=== PATIENT | female | born 1970 | race Caucasian/White ===

== ENCOUNTER 2021-01-08 15:32 | Day surgery (SDCO) | payer OTHER ==
[~2021-01-08] VITALS: Ht 155 cm; Wt 53.0 kg
[~2021-01-08 15:32] MED LIST: NAPROXEN500 MG PO; VOLTAREN **OUT50 MG PO
[2021-01-08 17:52] LABS: BASOPHIL 0.2 % (0-2); EOSINOPHIL 0.8 % (0-5); HCT 37.2 % (37.0-47.0); HGB 12.6 g/dl (12.5-16.0); LYMPHOCYTE 21.9 % (15-48); MCH 28.3 pg (25.0-31.0); MCHC 33.9 g/dL (32.0-36.0); MCV 83.4 fL (78.0-100.0); MONOCYTE 5.1 % (0-12); MPV 11.9 fL (6.0-9.5); NEUTROPHIL 71.7 % (41-80); NRBC 0; PLT 190 K/uL (150-400); RBC 4.46 M/uL (4.20-5.40); RDW 12.2 % (11.5-14.0); WBC 8.9 K/uL (4.0-10.5)
[2021-01-08 18:08] LABS: BILIRUBIN NEGATIVE (NEGATIVE); BLOOD 2+ Ery/uL (NEGATIVE); CLARITY CLEAR (CLEAR); COLOR YELLOW (YELLOW); GLUCOSE (U) NORMAL (NORMAL); LEUKOCYTES NEGATIVE Leu/uL (NEGATIVE); NITRITE NEGATIVE (NEGATIVE); PROTEIN TRACE (LOW) mg/dL (NEGATIVE); SPECIFIC GRAVITY 1.025 (1.001-1.030); UROBILINOGEN 0.2 mg/dL (0.2-1.0)
[2021-01-08 18:10] LABS: BACTERIA TRACE; MUCOUS MODERATE; URINARY RBC RARE; URINARY WBC RARE
[2021-01-08 18:11] LABS: INR 1.06 (0.9-1.2); PROTHROMBIN TIME 13.1 SECONDS (11.4-13.6); PTT 30.9 SECONDS (22.2-34.7)
[2021-01-08 18:14] LABS: ALBUMIN 3.6 g/dL (3.4-5.0); BILIRUBIN - TOTAL 0.5 mg/dL (0.2-1.0); BUN/CREAT RATIO (CALC) 15.6 RATIO; C-REACTIVE PROTEIN 3.8 mg/dL (<=0.90); CREATININE 0.64 mg/dL (0.51-0.95); GLOBULIN (CALCULATION) 4.2 g/dL; POTASSIUM 3.4 mmol/L (3.5-5.1); TOTAL PROTEIN 7.8 g/dL (6.4-8.2)
[2021-01-09 06:14] LABS: BASOPHIL 0.3 % (0-2); EOSINOPHIL 1.7 % (0-5); HCT 32.4 % (37.0-47.0); LYMPHOCYTE 24.7 % (15-48); MCH 28.5 pg (25.0-31.0); MCV 83.9 fL (78.0-100.0); MONOCYTE 6.9 % (0-12); MPV 12.1 fL (6.0-9.5); NEUTROPHIL 65.9 % (41-80); NRBC 0; PLT 158 K/uL (150-400); RBC 3.86 M/uL (4.20-5.40); RDW 12.3 % (11.5-14.0); WBC 7.5 K/uL (4.0-10.5)
[2021-01-09 06:43] LABS: ALBUMIN 2.7 g/dL (3.4-5.0); BILIRUBIN - TOTAL 0.5 mg/dL (0.2-1.0); BUN/CREAT RATIO (CALC) 15.4 RATIO; CREATININE 0.65 mg/dL (0.51-0.95); GLOBULIN (CALCULATION) 3.5 g/dL; MAGNESIUM 1.7 mg/dL (1.8-2.4); PHOSPHORUS 2.2 mg/dL (2.6-4.7); POTASSIUM 3.3 mmol/L (3.5-5.1); TOTAL PROTEIN 6.2 g/dL (6.4-8.2)
--- NOTE | 2021-01-09 11:28 | NUR ---
@1264 PATIENT SIGNED CONSENT FOR SURGERY. TOWER LOADER OPERATOR WAS CALLED KANNAN [id number] WAS HER TOWER LOADER OPERATOR NUMBER.
--- NOTE | 2021-01-09 16:28 | NUR ---
01/09/21 Ms. Wilfredo Mckenzie is uninsured. She was referred to the [facility] via Dr. Valencia presenting the resources information through an interpretor.
[2021-01-09] MEDS ORDERED: NORCO 5-325 TA1 EACH PO (18:12)
[2021-01-09] MEDS ORDERED: IBUPROFEN400 MG PO (18:12)
[2021-01-09] MEDS ORDERED: ONDANSETRON ODT4 MG PO (18:12)
--- NOTE | 2021-01-09 20:54 | NUR ---
NURSE UTILIZED SUPERVISOR COMMUNICATIONS AND SIGNALS SERVICES PRIOR TO ASSSESING PT AND MEDICATION ADMINSTRATION. PT VERBALIZED UNDERSTANDING AND DENIES PAIN , INSTRUCTED ON USE OF CALL LIGHT FOR ANY NEEDS. SUPERVISOR COMMUNICATIONS AND SIGNALS ID #[id number]
--- NOTE | 2021-01-09 22:53 | NUR ---
2200: PT VOIDED 500 ML CLEAR YELLOW URINE. SPOKE WITH PT THROUGH TOW TRUCK OPERATOR ABOUT DC TONIGHT. PT STATED UNABLE TO GET PAIN RX FILLED TONIGHT. PT'S STATED HE WILL BE HERE AROUND 0700 FOR DC. 0: Geovanni GIL APRN NOTIFED PT WILL BE STAYING THE NIGHT AND DC'D EARLY AM.
--- NOTE | 2021-01-10 11:09 | NUR ---
[place] [id number] TALKED TO PATRICK. WENT OVER PT D/C ORDERS. PAPER WORK GIVEN TO PT.
== END 2021-01-10 11:31 | disposition home or self-care (01) ==
LOC: FER 15:32 → FMS 19:14
PROVIDERS: Internal Medicine; Nurse Practitioner; ADMIT Internal Medicine
DX: K80.12 Calculus of gallbladder with acute and chronic cholecystitis without obstruction (principal); U07.1 COVID-19; J12.82 Pneumonia due to coronavirus disease 2019
CPT/HCPCS: 36415; 76705; 80053; 81001; 83605; 83690; 83735; 84100; 85025; 85610; 85730; 86140; 94010; 96372; C9113; G0378; J1100; J1170; J1644; J1650; J1885; J2270; J2405; J2543; J2704; J2710; J3010; J7030; J7120; U0002

== ENCOUNTER 2021-04-26 14:05 | Emergency (ER) | payer OTHER ==
[~2021-04-26 14:05] MED LIST changes: +IBUPROFEN400 MG PO; +NORCO 5-325 TA1 EACH PO; +ONDANSETRON ODT4 MG PO
[2021-04-26 15:21] LABS: BILIRUBIN NEGATIVE (NEGATIVE); BLOOD 2+ Ery/uL (NEGATIVE); CLARITY CLEAR (CLEAR); COLOR YELLOW (YELLOW); GLUCOSE (U) NORMAL (NORMAL); LEUKOCYTES NEGATIVE Leu/uL (NEGATIVE); NITRITE NEGATIVE (NEGATIVE); PROTEIN NEGATIVE (NEGATIVE); SPECIFIC GRAVITY 1.015 (1.001-1.030); UROBILINOGEN 0.2 mg/dL (0.2-1.0)
[2021-04-26 15:30] LABS: BACTERIA TRACE; URINARY WBC RARE
[2021-04-26 17:16] LABS: BASOPHIL 0.4 % (0-2); EOSINOPHIL 1.6 % (0-5); HCT 41.3 % (37.0-47.0); HGB 13.5 g/dl (12.5-16.0); LYMPHOCYTE 16.3 % (15-48); MCH 27.1 pg (25.0-31.0); MCHC 32.7 g/dL (32.0-36.0); MCV 82.9 fL (78.0-100.0); MONOCYTE 6.4 % (0-12); MPV 13.6 fL (6.0-9.5); NEUTROPHIL 75.1 % (41-80); NRBC 0; RBC 4.98 M/uL (4.20-5.40); RDW 12.9 % (11.5-14.0); WBC 14.8 K/uL (4.0-10.5)
[2021-04-26 17:36] LABS: PLT 157 K/uL (150-400)
[2021-04-26 17:38] LABS: ALBUMIN 4.1 g/dL (3.4-5.0); BILIRUBIN - TOTAL 0.7 mg/dL (0.2-1.0); BUN/CREAT RATIO (CALC) 18.3 RATIO; CREATININE 0.6 mg/dL (0.51-0.95); GLOBULIN (CALCULATION) 4.2 g/dL; MAGNESIUM 2.3 mg/dL (1.8-2.4); TOTAL PROTEIN 8.3 g/dL (6.4-8.2)
[2021-04-26] MEDS ORDERED: METRONIDAZOLE500 MG PO (19:01)
[2021-04-26] MEDS ORDERED: CIPRO500 MG PO (19:01)
[2021-04-26] MEDS ORDERED: ZOFRAN4 M1 PO (19:01)
[2021-04-26] MEDS ORDERED: NORCO 5-325 TA1 EACH PO (19:01)
[2021-04-26] MEDS ORDERED: COLACE100 MG PO (19:01)
== END 2021-04-26 20:39 | disposition home or self-care (01) ==
LOC: FER 14:05
PROVIDERS: Emergency Medicine; Surgery
DX: R10.819 Abdominal tenderness, unspecified site (principal); Z90.49 Acquired absence of other specified parts of digestive tract; Z87.19 Personal history of other diseases of the digestive system
CPT/HCPCS: 36415; 80053; 81001; 83690; 83735; 84145; 84484; 85025; 87088; 93005; J1170; J1885; J2405; J2543; J7030

== ENCOUNTER 2021-09-25 17:18 | Emergency (ER) | payer MEDICAID ==
[~2021-09-25 17:18] MED LIST changes: +CIPRO500 MG PO; +COLACE100 MG PO; +METRONIDAZOLE500 MG PO; +ZOFRAN4 M1 PO
[2021-09-26 01:18] LABS: BILIRUBIN NEGATIVE (NEGATIVE); BLOOD 3+ Ery/uL (NEGATIVE); CLARITY CLEAR (CLEAR); COLOR YELLOW (YELLOW); GLUCOSE (U) NORMAL (NORMAL); LEUKOCYTES NEGATIVE Leu/uL (NEGATIVE); NITRITE NEGATIVE (NEGATIVE); PROTEIN NEGATIVE (NEGATIVE); UROBILINOGEN 0.2 mg/dL (0.2-1.0)
[2021-09-26 01:19] LABS: BASOPHIL 0.3 % (0-2); EOSINOPHIL 0.8 % (0-5); HCT 38.8 % (37.0-47.0); MCH 27.3 pg (25.0-31.0); MCHC 33.5 g/dL (32.0-36.0); MCV 81.3 fL (78.0-100.0); MONOCYTE 5.5 % (0-12); MPV 13.1 fL (6.0-9.5); NRBC 0; PLT 189 K/uL (150-400); RBC 4.77 M/uL (4.20-5.40); RDW 12.8 % (11.5-14.0); WBC 14.8 K/uL (4.0-10.5)
[2021-09-26 01:44] LABS: CREATININE 0.6 mg/dL (0.51-0.95); POTASSIUM 3.5 mmol/L (3.5-5.1)
[2021-09-26] MEDS ORDERED: NORCO 5-325 TA1 EACH PO (06:34)
[2021-09-26] MEDS ORDERED: ONDANSETRON ODT4 MG SL (06:34)
[2021-09-26] MEDS ORDERED: AUGMENTIN 875-1 EACH PO (06:34)
== END 2021-09-26 07:00 | disposition home or self-care (01) ==
LOC: FER 17:18
PROVIDERS: Emergency Medicine Emergency Medical Services
DX: K57.32 Diverticulitis of large intestine without perforation or abscess without bleeding (principal); N83.201 Unspecified ovarian cyst, right side
CPT/HCPCS: 36415; 76830; 80048; 81001; 85025; J0696; J1170; J1885; J2405; J7030; Q9967

== ENCOUNTER 2022-01-13 00:04 | Emergency (ER) | payer SELFPAY ==
[~2022-01-13 00:04] MED LIST changes: +AUGMENTIN 875-1 EACH PO; +ONDANSETRON ODT4 MG SL
[2022-01-13 01:34] LABS: BASOPHIL 0.3 % (0-2); EOSINOPHIL 1.2 % (0-5); HCT 36.9 % (37.0-47.0); HGB 12.3 g/dl (12.5-16.0); LYMPHOCYTE 19.6 % (15-48); MCH 26.9 pg (25.0-31.0); MCHC 33.3 g/dL (32.0-36.0); MCV 80.7 fL (78.0-100.0); MONOCYTE 5.1 % (0-12); MPV 12.7 fL (6.0-9.5); NEUTROPHIL 73.3 % (41-80); NRBC 0; PLT 205 K/uL (150-400); RBC 4.57 M/uL (4.20-5.40); RDW 13.7 % (11.5-14.0); WBC 15.4 K/uL (4.0-10.5)
[2022-01-13 01:53] LABS: ALBUMIN 3.5 g/dL (3.4-5.0); BILIRUBIN - TOTAL 0.2 mg/dL (0.2-1.0); BUN/CREAT RATIO (CALC) 25.4 RATIO; CREATININE 0.59 mg/dL (0.51-0.95); GLOBULIN (CALCULATION) 4.3 g/dL; POTASSIUM 3.4 mmol/L (3.5-5.1); TOTAL PROTEIN 7.8 g/dL (6.4-8.2)
[2022-01-13 02:08] LABS: BILIRUBIN NEGATIVE (NEGATIVE); BLOOD 1+ Ery/uL (NEGATIVE); CLARITY CLEAR (CLEAR); COLOR YELLOW (YELLOW); GLUCOSE (U) NORMAL (NORMAL); LEUKOCYTES NEGATIVE Leu/uL (NEGATIVE); NITRITE NEGATIVE (NEGATIVE); PROTEIN NEGATIVE (NEGATIVE); UROBILINOGEN 0.2 mg/dL (0.2-1.0)
[2022-01-13 02:36] LABS: BACTERIA TRACE; URINARY WBC RARE
[2022-01-13] MEDS ORDERED: METRONIDAZOLE500 MG PO (03:02)
[2022-01-13] MEDS ORDERED: CIPRO500 MG PO (03:02)
[2022-01-13] MEDS ORDERED: NORCO 5-325 TA1 EACH PO (03:02)
== END 2022-01-13 04:38 | disposition home or self-care (01) ==
LOC: FER 00:04
PROVIDERS: Internal Medicine
DX: K57.32 Diverticulitis of large intestine without perforation or abscess without bleeding (principal)
CPT/HCPCS: 36415; 80053; 81001; 83690; 84145; 85025; J1170; J2405

== ENCOUNTER 2022-02-24 22:35 | Emergency (ER) | payer OTHER ==
[2022-02-24 23:57] LABS: BASOPHIL 0.4 % (0-2); EOSINOPHIL 1.8 % (0-5); HGB 11.9 g/dl (12.5-16.0); LYMPHOCYTE 34.9 % (15-48); MCH 26.5 pg (25.0-31.0); MCHC 32.2 g/dL (32.0-36.0); MCV 82.4 fL (78.0-100.0); MONOCYTE 5.5 % (0-12); MPV 13.5 fL (6.0-9.5); NEUTROPHIL 56.8 % (41-80); NRBC 0; PLT 194 K/uL (150-400); RBC 4.49 M/uL (4.20-5.40); RDW 13.6 % (11.5-14.0); WBC 9.9 K/uL (4.0-10.5)
[2022-02-25 00:07] LABS: ALBUMIN 3.8 g/dL (3.4-5.0); BILIRUBIN - TOTAL 0.3 mg/dL (0.2-1.0); BUN/CREAT RATIO (CALC) 22.5 RATIO; CREATININE 0.71 mg/dL (0.51-0.95); POTASSIUM 3.4 mmol/L (3.5-5.1); TOTAL PROTEIN 7.8 g/dL (6.4-8.2)
== END 2022-02-25 03:10 | disposition home or self-care (01) ==
LOC: FER 22:35
PROVIDERS: Emergency Medicine
DX: S20.219A Contusion of unspecified front wall of thorax, initial encounter (principal); M79.671 Pain in right foot; M54.2 Cervicalgia; V49.50XA Passenger injured in collision with unspecified motor vehicles in traffic accident, initial encounter
CPT/HCPCS: 36415; 70450; 71260; 72125; 73630; 80053; 83690; 85025; J1885; Q9967